=== PATIENT | male | born 1950 | race Caucasian/White ===

== ENCOUNTER → 2016-11-08 | Outpatient (CLI) | payer OTHER, MEDICARE ==
[~2016-11-08] MED LIST: ASPIR-TRIN325 MG PO; GABAPENTIN100 MG PO; IBUPROFEN 200200 M1 PO; MOBIC15 MG PO; NEURONTIN300 MG PO; RAPAFLO8 MG PO; TRAMADOL 50 MG50 MG PO; VENTOLIN HFA 1818 GM INH
== END ==
LOC: ULTRA 15:57
DX: M79.605 Pain in left leg (principal); M79.89 Other specified soft tissue disorders

== ENCOUNTER → 2016-12-08 | Outpatient (CLI) | payer OTHER, MEDICARE | LOC: RAD 15:43 | DX: R63.4 Abnormal weight loss (principal) ==

== ENCOUNTER → 2016-12-20 | Outpatient (CLI) | payer OTHER, MEDICARE | LOC: CAT 09:28 | DX: J98.4 Other disorders of lung (principal); I71.4 Abdominal aortic aneurysm, without rupture ==